=== PATIENT | male | born 1950 | race Caucasian/White ===

== ENCOUNTER 2022-02-06 15:32 | Observation (INO) ==
[2022-02-06] MEDS ORDERED: Ondansetron 4 MG/2 ML VIAL IVP PRN (15:53)
[2022-02-06] MEDS ORDERED: Naloxone 0.4 MG/ML INJ IVP PRN (15:53)
[2022-02-06] MEDS ORDERED: Acetaminophen 325 MG TABLET PO PRN (15:53)
[2022-02-06] MEDS ORDERED: *HR* HYDROcodone/Acet 5/325 mg TABLET PO PRN (15:53)
[2022-02-06] MEDS ORDERED: levoFLOXacin 750 MG/150 ML 750 MG/150 ML BAG IVPB SCH (16:07)
[2022-02-06] MEDS ORDERED: cloNIDine HCL 0.1 MG TABLET PO ONE (18:30)
[2022-02-06] MEDS: cefTRIAXone 1,000 MG in 0.9 % Sodium Chloride 10 ML IVP SCH (19:49)
[2022-02-06] MEDS: Azithromycin 500 MG in 0.9 % Sodium Chloride 250 ML IVPB SCH (19:52)
[2022-02-06] MEDS: carvediloL 25 MG TABLET PO SCH (20:16)
[2022-02-06] MEDS: Ipratropium/Albuterol Neb 3 ML IH SCH (20:20)
[2022-02-06] MEDS: Budesonide/Formoterol 160/4.5 1 PUFF INH IH SCH (20:20)
[2022-02-06] MEDS: haloperidoL 1 MG TABLET PO PRN (21:52)
[2022-02-07] MEDS: cloNIDine HCL 0.1 MG TABLET PO SCH ×4 (00:12→22:14)
[2022-02-07] MEDS: MethylPREDNISolone 40 MG/ML VIAL IVP SCH ×4 (00:12→17:18)
[2022-02-07] MEDS: Ipratropium/Albuterol Neb 3 ML IH SCH ×6 (01:14→20:24)
[2022-02-07 06:58] LABS: Hematocrit 37.4 % (37.5-50.1); Hemoglobin 12.8 g/dL (12.9-16.9); Mean Corpuscular HGB Conc 34.2 g/dL (31.6-35.5); Mean Corpuscular Hemoglobin 29.2 pg (28.0-33.3); Mean Corpuscular Volume 85.2 fL (83.0-100.0); Mean Platelet Volume 10.6 fL (9.4-12.4); Platelet Count 200 K/mcL (140-400); Red Blood Count 4.39 M/mcL (4.19-5.50); Red Cell Distribution Width 12.4 % (11.5-14.5); White Blood Count 11.6 K/mcL (4.3-11.1)
[2022-02-07] MEDS: Budesonide/Formoterol 160/4.5 1 PUFF INH IH SCH ×2 (07:55→20:24)
[2022-02-07 08:11] LABS: Chol/HDL Ratio 5.6 (0-4.9); Potassium 4.4 mEq/L (3.5-5.1); Troponin I 0.07 ng/mL (< 0.04)
[2022-02-07] MEDS: carvediloL 25 MG TABLET PO SCH ×2 (08:48→17:18)
[2022-02-07] MEDS: Aspirin 81 MG TAB.CHEW PO SCH (08:48)
[2022-02-07] MEDS: FLUoxetine HCl 10 MG CAPSULE PO SCH (08:48)
[2022-02-07] MEDS: Ammonium Lactate 30 APPL/225 GM BOTTLE TP SCH (08:49)
[2022-02-07 10:10] LABS: Adenovirus Not Detected (Not Detect); Bordetella Pertussis Not Detected (Not Detect); Chlamydophila pneumoniae Not Detected (Not Detect); Coronavirus 229E Not Detected (Not Detect); Coronavirus HKU1 Not Detected (Not Detect); Coronavirus NL63 Not Detected (Not Detect); Coronavirus OC43 Not Detected (Not Detect); Human Metapneumovirus Not Detected (Not Detect); Human Rhinovirus/Enterovirus Not Detected (Not Detect); Influenza A Subtype 2009 H1 Not Detected (Not Detect); Influenza B Not Detected (Not Detect); Mycoplasma pneumoniae Not Detected (Not Detect); Parainfluenza Virus 1 Not Detected (Not Detect); Parainfluenza Virus 2 Not Detected (Not Detect); Parainfluenza Virus 3 Not Detected (Not Detect); Parainfluenza Virus 4 Not Detected (Not Detect); Respiratory Syncytial Virus Not Detected (Not Detect); SARS-CoV-2 Not Detected (Not Detect)
[2022-02-07] MEDS: hydrALAZINE 25 MG TABLET PO SCH ×2 (16:06→23:21)
[2022-02-07] MEDS: Azithromycin 500 MG in 0.9 % Sodium Chloride 250 ML IVPB SCH (18:43)
[2022-02-07] MEDS: cefTRIAXone 1,000 MG in 0.9 % Sodium Chloride 10 ML IVP SCH (18:43)
[2022-02-07] MEDS ORDERED: *HR* Dextrose 50 % in Water (Syg) 50 ML SYRINGE IVP PRN (21:18)
[2022-02-07] MEDS ORDERED: Dextrose Gel 15 GM/37.5 ML TUBE PO PRN ×2 (21:18)
[2022-02-07] MEDS ORDERED: D5% in Water 1,000 ML IVC PRN (21:18)
[2022-02-07] MEDS: haloperidoL 1 MG TABLET PO PRN (22:14)
[2022-02-08] MEDS: Ipratropium/Albuterol Neb 3 ML IH SCH ×4 (00:16→11:44)
[2022-02-08 06:49] LABS: Calcium 8.5 mg/dL (8.6-10.3)
[2022-02-08] MEDS: carvediloL 25 MG TABLET PO SCH (08:02)
[2022-02-08] MEDS: FLUoxetine HCl 10 MG CAPSULE PO SCH (08:02)
[2022-02-08] MEDS: Aspirin 81 MG TAB.CHEW PO SCH (08:02)
[2022-02-08] MEDS: hydrALAZINE 25 MG TABLET PO SCH (08:02)
[2022-02-08] MEDS: cloNIDine HCL 0.1 MG TABLET PO SCH (08:03)
[2022-02-08] MEDS: Insulin LISPRO 300 UNITS/3 ML VIAL SUBQ SCH ×2 (08:03→11:31)
[2022-02-08] MEDS: Ammonium Lactate 30 APPL/225 GM BOTTLE TP SCH (08:10)
[2022-02-08] MEDS: Budesonide/Formoterol 160/4.5 1 PUFF INH IH SCH (08:51)
[2022-02-08] MEDS ORDERED: predniSONE 20 MG TABLET PO SCH (09:00)
[2022-02-08 09:58] LABS: Estimated Average Glucose 120 mg/dl; Hemoglobin A1C 5.8 %
[2022-02-08 11:13] VITALS: BP 126/83; PULSE 103; RESP 17; TEMP 97.7; O2SAT 95
[2022-02-08] MEDS ORDERED: Insulin LISPRO 300 UNITS/3 ML VIAL SUBQ SCH (21:00)
== END 2022-02-08 12:40 | disposition home or self-care (01) ==
LOC: INPPIK
PROVIDERS: ADMIT Family Medicine; ATTEND Family Medicine